=== PATIENT | female | born 1990 | race Caucasian/White ===

== ENCOUNTER → 2019-01-14 | Outpatient (CLI) | payer BC ==
[2019-01-14 17:31] LABS: African American GFR (CKD) 136.7 (60.0-200.0); Albumin 4.2 g/dL (3.80-4.90); Albumin/Globulin Ratio 1.68 (1.60-3.17); Anion Gap 10.6 mmol/L (4.00-12.00); BUN/Creat Ratio 12.86 Ratio (12.00-20.00); Carbon Dioxide 23.4 mmol/L (21.6-31.8); Globulin 2.5 g/dL (1.6-3.3); Potassium 4.1 mmol/L (3.5-5.5); Total Bilirubin 0.6 mg/dL (0.2-1.2); Total Protein 6.7 g/dL (6.2-8.2)
[2019-01-14 17:39] LABS: T4, Free (Free Thyroxine) 1.2 ng/dL (0.80-1.80)
[2019-01-14 17:47] LABS: Hemoglobin A1C 9.6 % (4.0-6.0)
== END | disposition home or self-care (01) ==
LOC: LABWHC1 11:13
PROVIDERS: ATTEND Internal Medicine Endocrinology, Diabetes & Metabolism
DX: E11.65 Type 2 diabetes mellitus with hyperglycemia (principal)
CPT/HCPCS: 36415; 80053; 83036; 84439; 84443; 84681

== ENCOUNTER 2019-01-23 14:01 | Day surgery (SDC) | payer BC ==
[~2019-01-23 14:01] MED LIST: Pre Op ABX Message 1 EACH MISC MISCELLANE ONE
[2019-01-23 14:28] VITALS: BMI 39.4
[2019-01-23 14:29] LABS: Glucose,Whole Blood 117 mg/dL (75-99)
[2019-01-23] MEDS ORDERED: ONDANSETRON 4 MG/2 ML VIAL IVP ONE (14:33)
[2019-01-23] MEDS ORDERED: LIDOCAINE 1% 20 ML VIAL (10MG/ML) FOR IV START INTRADERMA ONE (14:33)
[2019-01-23] MEDS ORDERED: LACTATED RINGERS 1,000 ML IV ONE ×3 (14:33→17:00)
[2019-01-23] MEDS ORDERED: DEXAMETHASONE SOD PHOSPHATE 10 MG/ML 1 ML VIAL IV ONE (14:34)
[2019-01-23 14:43] LABS: Basophils % (A) 0 %; Eosinophils # (A) 0.1 k/uL (0-0.7); Eosinophils % (A) 2 %; HCT 40.1 % (34.0-46.0); HGB 13.8 gm/dL (11.4-16.0); Lymphocytes # (A) 3.4 k/uL (1.0-4.8); Lymphocytes % (A) 43 %; MCH 29.1 pg (25.0-35.0); MCHC 34.4 g/dL (31.0-37.0); MCV 84.6 fL (80.0-100.0); Mean Platelet Volume 9.3; Monocytes # (A) 0.3 k/uL (0-1.0); Monocytes % (A) 3 %; Neutrophils % (A) 50 %; Platelet Count 204 k/uL (150-450); RBC 4.74 m/uL (3.80-5.40); RDW 12.6 % (11.5-15.5)
[2019-01-23] MEDS ORDERED: HYDROmorphone (PF) 1 MG/ML ONE (14:56)
[2019-01-23] MEDS ORDERED: SUCCINYLCHOLINE CHLORIDE 100 MG/5 ML SYR IV ONE (14:56)
[2019-01-23] MEDS ORDERED: fentaNYL (PF) 50 MCG/ML 2 ML AMP ONE (14:56)
[2019-01-23] MEDS ORDERED: PROPOFOL 10 MG/ML 20 ML VIAL IV ONE (14:56)
[2019-01-23] MEDS ORDERED: LIDOCAINE 1% INJ 10MG/ML (20 ML MDV) ONE (14:56)
[2019-01-23] MEDS ORDERED: KETOROLAC 30 MG/ML 1 ML VIAL ONE (14:56)
[2019-01-23] MEDS ORDERED: ROCURONIUM BROMIDE 10 MG/ML 10 ML VIAL IV ONE (14:56)
[2019-01-23] MEDS ORDERED: MIDAZOLAM 2 MG/2 ML VIAL ONE (14:56)
[2019-01-23] MEDS ORDERED: BUPIVACAINE (PF) 0.25% 30 ML VIAL SQ ONE ×2 (15:16→15:27)
--- NOTE | 2019-01-23 15:57 | P.OP ---
Date of Procedure: 01/23/19 Preoperative Diagnosis: Ectopic Postoperative Diagnosis: Same, hemoperitoneum Procedure(s) Performed: Diagnostic laparoscopy Anesthesia: SANTANA Surgeon: Valeria Valdes Estimated Blood Loss (ml): 10 IV fluids (ml): 700 Urine output (ml): 100 Pathology: none sent Condition: stable Disposition: PACU Indications for Procedure: Early with ultrasound findings consistent with ectopic and free fluid noted in the pelvis. Operative Findings: Uterus is noted to be heart shaped with midline septum, blood was noted anteriorly and posterior only to the uterus, both fallopian tubes were noted to be normal in nature no areas of suspicion were noted. Left fallopian tube fimbria were noted to be dilated suspicious for extrusion of through the fallopian tube. Description of Procedure: Patient was seen in the preoperative area and procedure was reviewed. Questions were answered and risks were reviewed including but not limited to infection, bleeding, damage to bladder, bowel, ureteric or other pelvic structures. Informed consent was obtained. Patient was taken back to the operating suite where general anesthesia was obtained without difficulty by the anesthesia department. She was then prepped and draped in normal sterile fashion in the dorsal lithotomy position. A red rubber catheter was then used to drain the bladder clear yellow urine, a speculum was placed and the anterior lip of the cervix was visualized. An acorn uterine manipulator was advanced into the uterus as a means to manipulate the uterus throughout the procedure. Attention under the patient's abdomen where a small umbilical incision is made. Through this incision the veress needles placed, once the Veress needle was deemed to be in the proper position with a drop of CO2 pressure with insufflation of CO2 gas CO2 insufflation was allowed to occur. The incision was elongated to 10 mm and a 10 mm trocar and sleeve is placed through the skin incision and toward the pneumoperitoneum under direct visualization. On inspection the patient's pelvis the above-noted finds were visualized. An additional port site was placed in the patient's right mid quadrant under direct visualization. Blunt probe was then used to fully surveyed the patient's pelvis both fallopian tubes appeared normal. No dilation of either fallopian tube was noted. Bleeding was noted to be behind the uterus in the posterior cul-de-sac along with anteriorly. Multiple pictures were taken and all inserts were removed from the patient's abdomen. The acorn uterine manipulator was removed from the patient's cervix along with a single-tooth tenaculum hemostasis was appreciated. The skin incisions were closed with 4-0 Vicryl in a subcuticular fashion Steri-Strips and sterile dressings were applied as needed. Next para patient tolerated procedure well all counts are correct 2 patient was taken the recovery room awake in stable condition.
--- NOTE | 2019-01-23 15:58 | P.PN ---
Progress Note - Text Progress Note Date: 01/23/19 Given the findings of patient's procedure and no true evidence of ectopic within the fallopian tube and suspected extrusion through the left fallopian tube methotrexate injection will be given. Patient's family is informed of this injection and all questions are answered. Patient will be followed closely by my office. Labs will be drawn prior to injection being given, an additional lab slips will be given to patient through the office.
[2019-01-23 15:59] VITALS: TEMP 97.5
[2019-01-23] MEDS ORDERED: Rhogam IMMUNE GLOBULIN 1,500 UNIT/1 ML IM ONE (16:00)
[2019-01-23 16:08] LABS: Glucose,Whole Blood 129 mg/dL (75-99)
[2019-01-23 16:12] LABS: ALT 24 U/L (9-52); AST 26 U/L (14-36); African American GFR (CKD) >90 (>60 ml/min/1.73 sqM); Blood Urea Nitrogen 10 mg/dL (7-17)
[2019-01-23] MEDS ORDERED: METHOTREXATE SODIUM (PF) 25 MG/ML 2 ML VIAL IM ONE (16:30)
[2019-01-23 17:14] LABS: Basophils % (A) 0 %; Eosinophils # (A) 0.1 k/uL (0-0.7); Eosinophils % (A) 1 %; HCT 37.6 % (34.0-46.0); HGB 12.8 gm/dL (11.4-16.0); Lymphocytes # (A) 1.5 k/uL (1.0-4.8); Lymphocytes % (A) 16 %; MCH 29.3 pg (25.0-35.0); MCV 86.1 fL (80.0-100.0); Mean Platelet Volume 9.3; Monocytes # (A) 0.1 k/uL (0-1.0); Monocytes % (A) 1 %; Neutrophils # (A) 7.8 k/uL (1.3-7.7); Neutrophils % (A) 82 %; Platelet Count 183 k/uL (150-450); RBC 4.37 m/uL (3.80-5.40); RDW 12.7 % (11.5-15.5); WBC 9.5 k/uL (3.8-10.6)
[2019-01-23 17:24] VITALS: RESP 16
[2019-01-23 17:24] LABS: ALT 29 U/L (9-52); AST 23 U/L (14-36); African American GFR (CKD) >90 (>60 ml/min/1.73 sqM); Blood Urea Nitrogen 8 mg/dL (7-17)
[2019-01-23] MEDS ORDERED: INSULIN GLULISINE 8 UNIT SQ SCH (17:30)
[2019-01-23 17:53] VITALS: BP 117/88; PULSE 70
[2019-01-23] MEDS ORDERED: INSULIN GLARGINE HUM REC ANLOG 36 UNIT SQ SCH (21:00)
== END 2019-01-23 18:19 | disposition home or self-care (01) ==
LOC: OR 14:01
PROVIDERS: ATTEND Obstetrics & Gynecology Obstetrics
DX: O00.90 Unspecified ectopic pregnancy without intrauterine pregnancy (principal); K66.1 Hemoperitoneum; E11.9 Type 2 diabetes mellitus without complications; E66.9 Obesity, unspecified; Z79.4 Long term (current) use of insulin; Z68.38 Body mass index [BMI] 38.0-38.9, adult
CPT/HCPCS: 86900; 86901; 82565; 84450; 84460; 84520; 85025; 86850; 84702; 49320; J2791; J2250; J1100; J9260; J2405; J2001; J3010; J1885; J1170; J0330; J2704

== ENCOUNTER → 2019-01-23 | Outpatient (CLI) | payer BC ==
--- NOTE | 2019-01-23 12:07 | US ---
EXAMINATION TYPE: Transabdominal DATE OF EXAM: 01/23/2019 11:36 AM COMPARISON: NONE CLINICAL HISTORY: O46.91 BLEEDING/SPOTTING x 1 day; ; diabetes EXAM PERFORMED: Transvaginal (TV) and Transabdominal (TA) EXAM MEASUREMENTS: GESTATIONAL AGE / DATING Physician Established: Not yet established Dates by LMP: (7 weeks/2 days) EDC: 09/09/2019 Dates by First Scan: No previous. Dates by Current Scan for: No IUP seen at this time; can not exclude ectopic with left adne xal mass exophytic to left ovary MATERNAL ANATOMY Uterus: 8.5 x 4.4 x 3.7cm; heterogeneous oval mass left myometrium (may be uterine fibroid) = 1.7 x 1 .7 x 1.6cm. Right Ovary: not seen Left Ovary: 1.9 x 1.3 x 1.1cm Post CDS : Presence of free fluid seen = 3.8 x 1.7 x 1.2cm Left Adnexa: Thick walled cystic structure exophytic to left ovary with internal echoes is noted = 1 .4 x 1.7 x 1.4cm GESTATION / SURVEY IUP: No IUP seen at this time Date of LMP: 12/03/2018 Beta HcG (if available): NA No IUP seen; left adnexal mass is seen near left ovary. Small amount of free fluid is seen. IMPRESSION: 1. There is a structure separate from the ovary within the left adnexa that is concerning for ectopic . Correlate with patient's serum beta hCG. No sonographic evidence of intrauterine pregnanc y. Findings were called to Dr. Severino's office nurse (Jose M) by the painter foreman Letty Branham at the end of exam at approximately 11:41 AM. 2. Probable uterine leiomyoma. 3. Small amount of free fluid in posterior cul-de-sac.
== END | disposition home or self-care (01) ==
LOC: RADUSWWP 10:43
PROVIDERS: ATTEND Obstetrics & Gynecology Obstetrics
DX: O00.202 Left ovarian pregnancy without intrauterine pregnancy (principal)
CPT/HCPCS: 76801; 76817

== ENCOUNTER → 2019-01-26 | Outpatient (CLI) | payer BC | END | disposition home or self-care (01) | LOC: LABMAIN 16:19 | PROVIDERS: ATTEND Obstetrics & Gynecology Obstetrics | DX: O00.109 Unspecified tubal pregnancy without intrauterine pregnancy (principal); Z3A.00 Weeks of gestation of pregnancy not specified | CPT/HCPCS: 36415; 84702 ==

== ENCOUNTER → 2019-01-29 | Outpatient (CLI) | payer BC ==
[2019-01-29 12:34] LABS: HCT 39.4 % (34.0-46.0); HGB 13.7 gm/dL (11.4-16.0); MCH 29.5 pg (25.0-35.0); MCHC 34.7 g/dL (31.0-37.0); MCV 85.2 fL (80.0-100.0); Mean Platelet Volume 8.4; Platelet Count 213 k/uL (150-450); RBC 4.63 m/uL (3.80-5.40); RDW 12.6 % (11.5-15.5); WBC 5.9 k/uL (3.8-10.6)
[2019-01-29 20:42] LABS: African American GFR (CKD) 136.7 (60.0-200.0)
[2019-01-29 20:51] LABS: HCG,Quantitative Serum 14.4 mIU/mL
== END | disposition home or self-care (01) ==
LOC: LABWHC1 11:17
PROVIDERS: ATTEND Obstetrics & Gynecology Obstetrics
DX: O00.109 Unspecified tubal pregnancy without intrauterine pregnancy (principal)
CPT/HCPCS: 36415; 82565; 84450; 84460; 84520; 84702; 85027

== ENCOUNTER → 2019-02-10 | Outpatient (CLI) | payer BC | END | disposition home or self-care (01) | LOC: LABWHC1 13:25 | PROVIDERS: ATTEND Obstetrics & Gynecology Obstetrics | DX: O00.109 Unspecified tubal pregnancy without intrauterine pregnancy (principal) | CPT/HCPCS: 36415; 84702 ==

== ENCOUNTER → 2019-07-17 | Outpatient (CLI) | payer SELFPAY | END | disposition home or self-care (01) | LOC: LABWHC1 10:39 | PROVIDERS: ATTEND Obstetrics & Gynecology Obstetrics | DX: O20.0 Threatened abortion (principal) | CPT/HCPCS: 36415; 84702 ==

== ENCOUNTER → 2019-07-28 | Outpatient (CLI) | payer SELFPAY | END | disposition home or self-care (01) | LOC: LABWHC1 10:51 | PROVIDERS: ATTEND Obstetrics & Gynecology Obstetrics | DX: O02.1 Missed abortion (principal) | CPT/HCPCS: 36415; 84702 ==

== ENCOUNTER → 2020-04-30 | Outpatient (CLI) | payer BC ==
--- NOTE | 2020-04-30 13:12 | US ---
EXAMINATION TYPE: Transabdominal DATE OF EXAM: 04/30/2020 11:22 AM COMPARISON: NONE CLINICAL HISTORY: O46.91 Antepartum hemorrhage, unspecified, first t. EXAM PERFORMED: Transvaginal (TV) and Transabdominal (TA) EXAM MEASUREMENTS: GESTATIONAL AGE / DATING Physician Established: Not yet established Dates by LMP: LMP unknown Dates by First Scan: not available Dates by Current Scan for: No IUP seen at this time MATERNAL ANATOMY Uterus: 9.4 x 4.2 x 4.7cm, complex mass with peripheral vascularity seen previously 2019 measuring 2. 6 x 2.0 x 1.6 cm Right Ovary: not visualized due to overlying bowel, increased uterine size and obesity Left Ovary: not visualized due to overlying bowel, increased uterine size and obesity Post CDS / Adnexa:mild free fluid in cul de sac Endometrium: appears complex without increased vascularity measures 1.4cm GESTATION / SURVEY IUP: No IUP seen at this time Beta HcG (if available): Not available at this time Patient states she had an earlier ultrasound where IUP was seen. IMPRESSION: 1. Normal-appearing pelvic ultrasound. 2. Patient's reported intrauterine is not evident on this examination. Consider spontaneous .
== END | disposition home or self-care (01) ==
LOC: RADUSWWP 10:45
PROVIDERS: ATTEND Obstetrics & Gynecology Obstetrics
DX: O46.91 Antepartum hemorrhage, unspecified, first trimester (principal)
CPT/HCPCS: 76801; 76817

== ENCOUNTER → 2020-11-23 | Outpatient (CLI) | payer BC ==
[2020-11-23 19:59] LABS: Hemoglobin A1C 5.1 % (4.0-6.0)
[2020-11-23 22:37] LABS: African American GFR (CKD) 150.5 (60.0-200.0); Albumin 3.9 g/dL (3.80-4.90); Albumin/Globulin Ratio 1.39 (1.60-3.17); Calcium 8.9 mg/dL (8.7-10.3); Globulin 2.8 g/dL (1.6-3.3); Non-African American GFR(CKD) 129.9 (60.0-200.0); Potassium 4.1 mmol/L (3.5-5.5); Total Bilirubin 0.5 mg/dL (0.3-1.2); Total Protein 6.7 g/dL (6.2-8.2)
== END | disposition home or self-care (01) ==
LOC: LABWHC1 11:51
PROVIDERS: ATTEND Internal Medicine Endocrinology, Diabetes & Metabolism
DX: E11.65 Type 2 diabetes mellitus with hyperglycemia (principal)
CPT/HCPCS: 36415; 80053; 83036; 84443

== ENCOUNTER 2021-03-14 09:53 | Inpatient (IN) | payer BC ==
[2021-03-14 11:11] LABS: Appearance,Urine Cloudy (Clear); Bacteria,Urine Rare /hpf; Bilirubin,Urine Negative (Negative); Blood,Urine Negative (Negative); Color,Urine Yellow; Glucose,Urine (UA) Negative (Negative); Ketones,Urine Negative (Negative); Leukocyte Esterase,Urine Trace (Negative); Mucus,Urine Rare /hpf; Nitrite,Urine Negative (Negative); PH, Urine 5.5 (5.0-8.0); Protein,Urine 2+ (Negative); RBC,Urine 2 /hpf (0-5); Specific Gravity,Urine 1.026 (1.001-1.035); Squamous Epithelial Cell,Urine 6 /hpf (0-4); Urobilinogen,Urine <2.0 mg/dL (<2.0); WBC,Urine 3 /hpf (0-5)
[2021-03-14 11:13] LABS: Creatinine,Urine Random 143.3 mg/dL; Protein/Creatinine Ratio,Urine 1.214
[2021-03-14 11:44] LABS: ALT 10 U/L (4-34); AST 20 U/L (14-36); African American GFR (CKD) >90 (>60 ml/min/1.73 sqM); Blood Urea Nitrogen 11 mg/dL (7-17); LDH 353 U/L (313-618); Non-African American GFR(CKD) >90 (>60 ml/min/1.73 sqM); Uric Acid 5.2 mg/dL (3.7-7.4)
[2021-03-14 11:50] LABS: Basophils % (A) 0 %; Eosinophils # (A) 0.1 k/uL (0-0.7); Eosinophils % (A) 1 %; HCT 30.3 % (34.0-46.0); HGB 10.6 gm/dL (11.4-16.0); Lymphocytes # (A) 2.5 k/uL (1.0-4.8); Lymphocytes % (A) 40 %; MCH 28.4 pg (25.0-35.0); MCHC 35.1 g/dL (31.0-37.0); MCV 80.9 fL (80.0-100.0); Mean Platelet Volume 14.7; Monocytes # (A) 0.3 k/uL (0-1.0); Monocytes % (A) 5 %; Neutrophils # (A) 3.3 k/uL (1.3-7.7); Neutrophils % (A) 53 %; Platelet Count 143 k/uL (150-450); Poikilocytosis Slight; RBC 3.74 m/uL (3.80-5.40); RDW 14.6 % (11.5-15.5); WBC 6.3 k/uL (3.8-10.6)
[2021-03-14 12:25] LABS: Large Platelets Present
[2021-03-14] MEDS ORDERED: ceFAZolin 3 GM in SODIUM CHLORIDE 0.9% 100 ML IVPB ONE (14:36)
[2021-03-14] MEDS ORDERED: CITRIC ACID-SODIUM CITRATE 15 ML CUP PO ONE (14:36)
[2021-03-14] MEDS ORDERED: LACTATED RINGERS 1,000 ML IV ONE (14:36)
[2021-03-14 15:21] LABS: Glucose,Whole Blood 74 mg/dL (75-99)
[2021-03-14 16:38] LABS: INR 0.9 (<1.2); Prothrombin Time 9.5 sec (9.0-12.0)
[2021-03-14] MEDS ORDERED: OXYTOCIN 30 UNITS/500 ML NS BAG IV ONE (16:39)
[2021-03-14] MEDS ORDERED: MORPHINE SULFATE (PF) 0.3 MG/0.3 ML SYR ONE (16:39)
[2021-03-14] MEDS ORDERED: fentaNYL (PF) 50 MCG/ML 2 ML AMP ONE (16:39)
[2021-03-14] MEDS ORDERED: KETOROLAC 15 MG/ML 1 ML VIAL ONE (16:39)
[2021-03-14] MEDS ORDERED: ONDANSETRON 4 MG/2 ML VIAL ONE (16:39)
[2021-03-14] MEDS ORDERED: NALBUPHINE 10 MG/ML (1 ML AMP) ONE (16:39)
[2021-03-14 16:52] LABS: Partial Thromboplastin Time 20.2 sec (22.0-30.0)
[2021-03-14] MEDS ORDERED: SIMETHICONE 80 MG CHEWABLE PO PRN (17:55)
[2021-03-14] MEDS ORDERED: diphenhydrAMINE 50 MG/ML 1 ML VIAL IVP PRN ×2 (17:55)
[2021-03-14] MEDS ORDERED: KETOROLAC 30 MG/ML 1 ML VIAL IVP PRN (17:55)
[2021-03-14] MEDS ORDERED: ZOLPIDEM 5 MG TAB PO PRN (17:55)
[2021-03-14] MEDS ORDERED: METOCLOPRAMIDE 5 MG/ML 2 ML VIAL IVP PRN (17:55)
[2021-03-14] MEDS ORDERED: ONDANSETRON 4 MG/2 ML VIAL IVP PRN (17:55)
[2021-03-14] MEDS ORDERED: LANOLIN CREAM 5 GM TUBE TOPICAL PRN (17:55)
[2021-03-14] MEDS ORDERED: HYDROmorphone 2 MG TAB PO PRN ×2 (17:55)
[2021-03-14] MEDS ORDERED: diphenhydrAMINE 50 MG CAP PO PRN (17:55)
[2021-03-14] MEDS ORDERED: diphenhydrAMINE 25 MG CAP PO PRN (17:55)
[2021-03-14] MEDS ORDERED: NALOXONE 0.4 MG/ML 1 ML VIAL IV PRN ×2 (17:55→18:54)
[2021-03-14] MEDS ORDERED: OXYTOCIN 30 UNITS/500 ML NS 30 UNIT in SALINE 1 500ML.BAG IV SCH (18:00)
--- NOTE | 2021-03-14 18:11 | P.HPOB ---
History of Present Illness H&P Date: 03/14/21 Chief Complaint: 37-4/7 weeks, insulin-dependent diabetes, poorly controlled, PIH The patient is a 30-year-old 5 para 0040 admitted at 37-4/7 weeks as established by early ultrasound. She is admitted for primary low-transverse section. Her has been complicated by pre-gestational insulin-dependent diabetes for which she has fairly poor compliance despite being managed with an loom blower. She additionally is known to have an arcuate uterus. testing throughout the has been reassuring. She additionally is known to be Rh- and received RhoGAM at 28 weeks. She presented to the office today at which time her initial blood pressure was noted to be 180/88. She was transferred to triage for preeclampsia workup, serial blood pressures, and NST. NST was reactive and laboratory workup was within normal limits aside from 2+ proteinuria and elevated protein to creatinine ratio. She additionally had a 24-hour urine collected at the end of last week which has since returned with 900 mg of protein in the 24-hour urine collection. she also has been noted to have a fetus growing a greater than 90th percentile throughout the entire third trimester. given her gestational age is greater than 37 weeks and her diabetic control is poor and she now has had at least initial signs of potentially developing preeclampsia, the decision was made to deliver her directly. Her cervix was found to be closed thick high and very firm. Given the remoteness from delivery and the need for delivery sooner rather than later, the patient was counseled that agreed to undergo primary low-transverse section. Group B strep status is negative. Obstetrical history: 5 para 0040 with [place] early miscarriages. Current statistics are listed in history present illness. EDC of 03/31/2021 was established by early ultrasound. Laboratory workup demonstrates a blood type A- with a positive antibody screen for anti-D. She had been previously dosed with RhoGAM. Second trimester antibody screen was negative. Group B strep status is also negative. Gynecologic history: Unremarkable with no history of any infections to include STDs. Review of Systems Review of systems is confined to history of present illness. Past Medical History Past Medical History: Diabetes Mellitus History of Any Multi-Drug Resistant Organisms: None Reported Past Surgical History: No Surgical Hx Reported Past Anesthesia/Blood Transfusion Reactions: No Reported Reaction Past Psychological History: No Psychological Hx Reported Smoking Status: Never smoker Past Alcohol Use History: None Reported Past Drug Use History: None Reported - Past Family History Father Family Medical History: Diabetes Mellitus Medications and Allergies Home Medications Medication Instructions Recorded Confirmed Type Insulin Aspart [NovoLOG] 15 units SQ AC-TID 03/14/21 03/14/21 History Insulin Degludec [Tresiba] 38 units SQ HS 03/14/21 03/14/21 History Allergies Allergy/AdvReac Type Severity Reaction Status Date / Time No Known Allergies Allergy Verified 03/14/21 10:14 Exam Vital Signs Temp Pulse Resp BP Pulse Ox 03/14/21 17:53 95.9 F L 58 L 17 165/83 99 03/14/21 15:31 96.3 F L 96 17 159/95 03/14/21 14:55 96.8 F L 94 17 146/99 98 Intake and Output 03/14/21 03/14/21 03/14/21 06:59 14:59 22:59 Intake Total 800 Output Total 150 Balance 650 Intake: IV 800 Output: Urine 150 Other: Weight 139.253 kg In general, this is a morbidly obese white female in no acute distress. Her heart has a regular rhythm and rate without murmur. Her lungs are clear to auscultation bilaterally in all pereyra. Her abdomen is morbidly obese, gravid, soft, nontender, and without any palpable masses aside from the uterine fundus. Her extremities are without any cyanosis, clubbing, or significant edema and are nontender to palpation bilaterally. Digital cervical examination demonstrates her cervix to be closed, thick, and very high with the vertex in presentation. Results Result Diagrams: 03/14/21 11:01 03/14/21 11:01 Abnormal Lab Results - Last 24 Hours (Table) 03/14/21 03/14/21 03/14/21 Range/Units 09:53 11:01 15:19 RBC 3.74 L (3.80-5.40) m/uL Hgb 10.6 L (11.4-16.0) gm/dL Hct 30.3 L (34.0-46.0) % Plt Count 143 L (150-450) k/uL APTT (22.0-30.0) sec POC Glucose (mg/dL) 74 L (75-99) mg/dL Urine Appearance Cloudy H (Clear) Urine Protein 2+ H (Negative) Ur Leukocyte Esterase Trace H (Negative) Ur Squamous Epith Cells 6 H (0-4) /hpf Urine Bacteria Rare H (None) /hpf Urine Mucus Rare H (None) /hpf 03/14/21 Range/Units 16:00 RBC (3.80-5.40) m/uL Hgb (11.4-16.0) gm/dL Hct (34.0-46.0) % Plt Count (150-450) k/uL APTT 20.2 L (22.0-30.0) sec POC Glucose (mg/dL) (75-99) mg/dL Urine Appearance (Clear) Urine Protein (Negative) Ur Leukocyte Esterase (Negative) Ur Squamous Epith Cells (0-4) /hpf Urine Bacteria (None) /hpf Urine Mucus (None) /hpf Assessment and Plan (1) induced hypertension Current Visit: Yes Status: Acute Code(s): O13.9 - GESTATIONAL HTN W/O SIGNIFICANT PROTEINURIA, UNSP TRIMESTER SNOMED Code(s): 14854152 (2) Term Current Visit: Yes Status: Acute Code(s): Z34.90 - ENCNTR FOR SUPRVSN OF NORMAL , UNSP, UNSP TRIMESTER SNOMED Code(s): 99889558 (3) macrosomia in Current Visit: Yes Status: Acute Code(s): O36.60X0 - MATERNAL CARE FOR EXCESS GROWTH, UNSP TRIMESTER, UNSP SNOMED Code(s): 88102522 (4) Insulin dependent diabetes mellitus Current Visit: Yes Status: Acute Code(s): WHT4821 - SNOMED Code(s): 69900263 Plan: Given the multiple findings as discussed in history present illness and the patient's gestational age at 37+ weeks, decision was made to proceed with delivery. As her cervix is entirely unfavorable and vaginal delivery is certainly not guaranteed, we've opted to proceed with primary low-transverse section. The risks and complications of the procedure been thoroughly discussed and the patient has understood and agreed to proceed. In the meantime, she will continue to have close maternal and surveillance.
--- NOTE | 2021-03-14 18:20 | P.OP ---
Date of Procedure: 03/14/21 Preoperative Diagnosis: #1. 37-4/7 weeks, insulin-dependent pre-gestational diabetes, poorly controlled #2. -induced hypertension #3. Patient remote from delivery #4. Suspected macrosomia #5. Morbid obesity Postoperative Diagnosis: Same Procedure(s) Performed: #1. Primary low-transverse section Anesthesia: spinal Surgeon: Miguel Cortes Lead Shop Operator #1: Tahira Joyner Estimated Blood Loss (ml): 500 IV fluids (ml): 700 Urine output (ml): 150 Pathology: other (Placenta) Condition: stable Disposition: floor Operative Findings: See dictated H&P for indications for surgery. The patient was taken to the operating room where she was delivered of a viable 8 lbs. 12 oz. baby girl with Apgars of 9 at 1 minute and 9 at 5 minutes delivered in the left occiput transverse. The placenta was delivered manually and intact and grossly normal with a grossly normal three-vessel cord. The uterus was noted to be arcuate in nature though there was no septum in the interior. The tubes and ovaries were otherwise normal. There additionally was a 1-2 cm low posterior fibroid which was subserosal in nature. Description of Procedure: The patient was prepped and draped in usual fashion after spinal anesthesia was administered by the anesthesiologist. A pannus retraction device had been put in place prior to prepping. A Pfannenstiel incision was made and extended into the abdominal cavity without difficulty. It is noted, however, that the subcutaneous fat layer was approximately 15-20 cm in depth. Once in the abdomen, an Agustín self-retaining retractor was placed. The bladder peritoneum was noted to be significantly distal to the intended site of incision. A 2 cm incision was made in the transverse plane of the lower uterine segment to enter the uterus although the placenta was noted to be in the way. The placenta was pushed aside and the head found within the pelvis and artificial rupture of membranes demonstrating clear fluid. The head was delivered up and through the incision and the remainder of the was delivered onto the field directly where the nose and mouth were thoroughly suctioned. The cord was doubly clamped, cut, and the passed for resuscitative measures with weight and Apgars as noted above. cord blood was collected for evaluation for the necessity of RhoGAM. The placenta was delivered manually and intact as noted above. The uterus was exteriorized and the interior cavity of the uterus swept of any remaining placental or membranous fragments. The margins of the uterine incision were grasped with Carrillo clamps and noted to be very high on the lower uterine segment. The incision was closed in 2 layers, the first layer being a running locking stitch of 0 chromic catgut followed by a running imbricating stitch of 0 chromic catgut, each from margin to margin. There was some ongoing bleeding near the right margin of the incision which was made hemostatic with 2 [id number] stitches of 0 Vicryl. The uterus was then replaced within the abdominal cavity and hemostasis appeared to be excellent. As the patient was experiencing some increasing discomfort and pushing fairly significantly, the parietal peritoneum was closed with a running stitch of 2-0 Vicryl. The layer of muscles were then examined and made hemostatic with the Bovie. The fascia was closed with 2 running stitches of 0 Vicryl proceeding from lateral margins to the midpoint. The subcutaneous tissues were irrigated, made hemostatic with the Bovie, and reapproximated with a running stitch of 30 plain catgut. The skin was reapproximated with a running subcuticular stitch of 4-0 Vicryl followed by half-inch Steri-Strips placed with Mastisol. A silver infused with wound dressing was placed over the entire incision to be left in place for 7 days. All sponge, instrument, needle counts were correct. Estimated blood loss for the case was approximately 500 mL. There were no complications. The patient tolerated the procedure well and proceeded to the recovery room in stable condition. Both mother and are resting comfortably in recovery.
[2021-03-14] MEDS ORDERED: HYDROmorphone 0.5 MG/0.5 ML SYRINGE IVP PRN (18:54)
[2021-03-14] MEDS ORDERED: KETOROLAC 15 MG/ML 1 ML VIAL IVP PRN (18:54)
[2021-03-14] MEDS: LACTATED RINGERS 1,000 ML IV SCH (19:29)
[2021-03-14] MEDS ORDERED: Rhogam IMMUNE GLOBULIN 1,500 UNIT/1 ML IM ONE (20:18)
[2021-03-14] MEDS: ACETAMINOPHEN TAB 500 MG TAB PO SCH (20:47)
[2021-03-14] MEDS: SENNOSIDES-DOCUSATE SODIUM 1 EACH TAB PO SCH (20:47)
[2021-03-15] MEDS: IBUPROFEN 600 MG TAB PO SCH ×3 (02:54→23:44)
[2021-03-15 06:02] LABS: Glucose,Whole Blood 63 mg/dL (75-99)
[2021-03-15] MEDS: LACTATED RINGERS 1,000 ML IV SCH ×2 (06:06→20:12)
--- NOTE | 2021-03-15 06:56 | P.PN ---
Progress Note - Text Progress Note Date: 03/15/21 Postoperative day 1 status post section under spinal anesthesia, and i ntrathecal morphine given for postoperative analgesia, patient doing well, there is no anesthesia related complications, Patient had no headache, vital signs stable , Assessment and plan= postop day 1 status post , doing well there is no anesthesia related complication.
[2021-03-15 07:45] LABS: Basophils % (A) 0 %; Eosinophils % (A) 1 %; HCT 27.2 % (34.0-46.0); HGB 9.2 gm/dL (11.4-16.0); Lymphocytes % (A) 25 %; MCH 27.7 pg (25.0-35.0); MCHC 33.6 g/dL (31.0-37.0); MCV 82.2 fL (80.0-100.0); Mean Platelet Volume 13.9; Monocytes # (A) 0.4 k/uL (0-1.0); Monocytes % (A) 5 %; Neutrophils # (A) 5.2 k/uL (1.3-7.7); Neutrophils % (A) 67 %; Poikilocytosis Slight; RBC 3.31 m/uL (3.80-5.40); RDW 14.2 % (11.5-15.5); WBC 7.7 k/uL (3.8-10.6)
[2021-03-15 09:08] LABS: Platelet Count 134 k/uL (150-450)
--- NOTE | 2021-03-15 09:09 | P.PNOBGPC ---
Subjective - Subjective Patient reports: Reports appetite normal, Reports voiding normally, Reports pain well controlled, Reports ambulating normally : doing well Objective - Vital Signs Latest vital signs: Vital Signs Temp Pulse Resp BP Pulse Ox 03/15/21 08:07 97.8 F 92 16 132/94 97 03/15/21 08:00 97.8 F 92 16 132/94 03/15/21 07:00 97 03/15/21 05:00 16 03/15/21 04:05 97.7 F 86 16 154/84 97 03/15/21 01:00 16 03/15/21 00:30 97.6 F 79 16 142/86 97 03/14/21 23:00 18 03/14/21 21:54 18 03/14/21 19:54 18 95 03/14/21 19:53 97.4 F L 66 18 150/91 95 03/14/21 19:23 80 18 144/82 03/14/21 18:53 82 17 152/84 98 03/14/21 18:38 73 17 148/80 100 03/14/21 18:23 81 16 148/89 98 03/14/21 18:08 76 17 140/83 03/14/21 17:53 95.9 F L 58 L 17 165/83 99 03/14/21 15:31 96.3 F L 96 17 159/95 03/14/21 14:55 96.8 F L 94 17 146/99 98 Intake and Output 03/14/21 03/15/21 03/15/21 22:59 06:59 14:59 Intake Total 1300 Output Total 150 1350 Balance 1150 -1350 Intake: IV 800 Intake, IV Titration 500 Amount Oxytocin 30 Units/500 ml 500 Ns 30 unit In Saline 1 500ml.bag @ Per Protocol IV .Q0M [facility] Rx#:[id number] Output: Urine 150 1350 Uretheral (Sahu) 1000 Other: Voiding Method Indwelling Catheter - Exam Extremities: Present: normal Abdomen: Present: normal appearance, soft, other (moderate edema in pannus). Absent: distention, tenderness Incision: Present: normal, dry, intact Uterus: Present: normal, firm (the uterine fundus is tonic and minimally tender below the umbilicus) - Labs Labs: Abnormal Lab Results - Last 24 Hours (Table) 03/14/21 03/14/21 03/14/21 Range/Units 09:53 11:01 15:19 RBC 3.74 L (3.80-5.40) m/uL Hgb 10.6 L (11.4-16.0) gm/dL Hct 30.3 L (34.0-46.0) % Plt Count 143 L (150-450) k/uL APTT (22.0-30.0) sec POC Glucose (mg/dL) 74 L (75-99) mg/dL Hemoglobin A1c (4.0-6.0) % Urine Appearance Cloudy H (Clear) Urine Protein 2+ H (Negative) Ur Leukocyte Esterase Trace H (Negative) Ur Squamous Epith Cells 6 H (0-4) /hpf Urine Bacteria Rare H (None) /hpf Urine Mucus Rare H (None) /hpf 03/14/21 03/14/21 03/15/21 Range/Units 16:00 16:00 06:00 RBC (3.80-5.40) m/uL Hgb (11.4-16.0) gm/dL Hct (34.0-46.0) % Plt Count (150-450) k/uL APTT 20.2 L (22.0-30.0) sec POC Glucose (mg/dL) 63 L (75-99) mg/dL Hemoglobin A1c 6.3 H (4.0-6.0) % Urine Appearance (Clear) Urine Protein (Negative) Ur Leukocyte Esterase (Negative) Ur Squamous Epith Cells (0-4) /hpf Urine Bacteria (None) /hpf Urine Mucus (None) /hpf 03/15/21 Range/Units 06:44 RBC 3.31 L (3.80-5.40) m/uL Hgb 9.2 L (11.4-16.0) gm/dL Hct 27.2 L (34.0-46.0) % Plt Count (150-450) k/uL APTT (22.0-30.0) sec POC Glucose (mg/dL) (75-99) mg/dL Hemoglobin A1c (4.0-6.0) % Urine Appearance (Clear) Urine Protein (Negative) Ur Leukocyte Esterase (Negative) Ur Squamous Epith Cells (0-4) /hpf Urine Bacteria (None) /hpf Urine Mucus (None) /hpf Assessment and Plan (1) induced hypertension Current Visit: Yes Status: Acute Code(s): O13.9 - GESTATIONAL HTN W/O SIGNIFICANT PROTEINURIA, UNSP TRIMESTER SNOMED Code(s): 28622666 (2) Term Current Visit: Yes Status: Acute Code(s): Z34.90 - ENCNTR FOR SUPRVSN OF NORMAL , UNSP, UNSP TRIMESTER SNOMED Code(s): 90901769 (3) macrosomia in Current Visit: Yes Status: Acute Code(s): O36.60X0 - MATERNAL CARE FOR EXCESS GROWTH, UNSP TRIMESTER, UNSP SNOMED Code(s): 87488357 (4) Insulin dependent diabetes mellitus Current Visit: Yes Status: Acute Code(s): GLQ7739 - SNOMED Code(s): 84033187 (5) S/P section Current Visit: Yes Status: Acute Code(s): Z98.891 - HISTORY OF UTERINE SCAR FROM PREVIOUS SURGERY SNOMED Code(s): 650574377 Plan: have strongly encouraged patient to begin ambulating the hallways routinely. She is already tolerating a regular diet and performing most other activities of daily living. Blood sugars remain in the normal range and she is managing her own insulin. I would anticipate discharge home tomorrow pending complications.
[2021-03-15] MEDS: SENNOSIDES-DOCUSATE SODIUM 1 EACH TAB PO SCH ×2 (09:16→19:36)
[2021-03-15] MEDS: ACETAMINOPHEN TAB 500 MG TAB PO SCH (19:36)
[2021-03-16] MEDS: ACETAMINOPHEN TAB 500 MG TAB PO SCH (04:02)
[2021-03-16 08:21] VITALS: BP 138/86; PULSE 94; RESP 16; TEMP 97.9
[2021-03-16] MEDS: SENNOSIDES-DOCUSATE SODIUM 1 EACH TAB PO SCH (08:26)
--- NOTE | 2021-03-16 08:49 | P.DS ---
Providers Date of admission: 03/14/21 14:41 Expected date of discharge: 03/16/21 Attending physician: Miguel Cortes Primary care physician: Stated None - Discharge Diagnosis(es) (1) induced hypertension Current Visit: Yes Status: Acute (2) Term Current Visit: Yes Status: Acute (3) macrosomia in Current Visit: Yes Status: Acute (4) Insulin dependent diabetes mellitus Current Visit: Yes Status: Acute (5) S/P section Current Visit: Yes Status: Acute Hospital Course: the patient is a 30-year-old 5 para 0040 admitted at 37-4/7 weeks by good dating parameters. She is admitted for an elective primary low-transverse section. This decision was made secondary to her having been complicated by pre-gestational insulin-dependent diabetes which is been poorly controlled during the leading to growth at greater than 98th percentile for the entirety of the third trimester. 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 testing was reassuring. She was seen in the office on the day of admission at which time her blood pressure was 180/88. She was sent to the hospital for workup which essentially was negative though she also was found to have significant proteinuria on a 24-hour urine collection prior to admission to the hospital and she had 2+ protein on her urine dip in the hospital. Given the concern for impending potential significant preeclamptic issues and her poorly controlled diabetes, the decision was made to proceed with delivery. Her cervix was found to be very unfavorable for delivery and, given the potential size of the fetus, the decision was made to proceed with elective primary section. She was taken the operating room where she was delivered of a viable 8 lbs. 12 oz. baby girl with Apgars of 9 at 1 minute and 9 at 5 minutes. Her postoperative course was unremarkable with vital signs being stable and her temperature was afebrile throughout. She was deemed stable for discharge on and postoperative day #2 and was d ischarged home to follow-up in the office in 1 week for removal of the silver infused wound dressing. Further follow-up will be determined at that time but she will certainly follow-up at 6 weeks' time routinely. Discharge instructions included calling for any significantly increased bleeding or foul-smelling lochia, significantly increased fever abdominal pain, perineal complaints, breast complaints, incisional complaints, or anything else that concerned her. She was additionally instructed to have nothing in the vagina for at least 6 weeks time to include intercourse. She was instructed to do no heavy lifting over that same period of time and to abstain from driving until off of all pain medications or 2 weeks' time, whichever came first part she understood her instructions and agrees to follow up as noted above. Discharge medications included continued home medications including insulin, continue vitamins as she has opted to breast-feed and then a prescription for Tylenol No. 3, 1-2 by mouth every 6 hours when necessary pain, #20 dispensed with no refills. Maternal blood type is A- and cord blood was sent for evaluation for the necessity of RhoGAM prior to discharge. Rubella status is immune. Discharge hemoglobin and hematocrit were 9.2 and 27.2 respectively. Procedures: #1. Primary low-transverse section Patient Condition at Discharge: Stable Plan - Discharge Summary New Discharge Prescriptions: No Action Insulin Aspart [NovoLOG] 15 units SQ AC-TID Insulin Degludec [Tresiba] 38 units SQ HS Discharge Medication List Insulin Aspart [NovoLOG] 15 units SQ AC-TID 03/14/21 [History] Insulin Degludec [Tresiba] 38 units SQ HS 03/14/21 [History] Follow up Appointment(s)/Referral(s): Valeria Valdes DO [Doctor of Osteopathic Medicine] - 1 Week Discharge Disposition: HOME SELF-CARE
== END 2021-03-16 12:15 | disposition home or self-care (01) | DRG 788 ==
LOC: FBPOP 09:53 → 4FBP 14:41
PROVIDERS: ADMIT Obstetrics & Gynecology; ATTEND Obstetrics & Gynecology
PROC: 3E0234Z Introduction of Serum, Toxoid and Vaccine into Muscle, Percutaneous Approach (ICD-10-PCS; 2021-03-14)
PROC: 10D00Z1 Extraction of Products of Conception, Low, Open Approach (ICD-10-PCS; principal; 2021-03-14 16:58)
DX: O14.94 Unspecified pre-eclampsia, complicating childbirth (principal); Z79.4 Long term (current) use of insulin; E66.01 Morbid (severe) obesity due to excess calories; O24.12 Pre-existing type 2 diabetes mellitus, in childbirth; O99.214 Obesity complicating childbirth; O36.63X0 Maternal care for excessive fetal growth, third trimester, not applicable or unspecified; O26.893 Other specified pregnancy related conditions, third trimester; Q51.810 Arcuate uterus; Z67.11 Type A blood, Rh negative; Z79.899 Other long term (current) drug therapy; Z3A.37 37 weeks gestation of pregnancy; Z37.0 Single live birth; Z83.3 Family history of diabetes mellitus
CPT/HCPCS: 59025; 81001; 82565; 82570; 83036; 83615; 84156; 84450; 84460; 84520; 84550; 85025; 85461; 85610; 85730; 86850; 86900; 86901; 88307